=== PATIENT | female | born 1965 | race Hispanic/Latino ===

== ENCOUNTER 2016-09-27 10:46 | Outpatient (CLI) | payer OTHER ==
--- NOTE | 2016-09-27 12:17 | Mammography Report ---
BILATERAL MAMMOGRAM: FINDINGS: There are scattered fibroglandular densities (approximately 25%-50% glandular). No mass, distortion, suspicious calcification, or skin change is seen. There are no interval changes compared to her prior examination in 2015. CAD was utilized. IMPRESSION: Negative mammogram. There is no mammographic evidence of malignancy. RECOMMENDATION: Follow-up per ACS guidelines. BI-RADS CATEGORY: 1 = Negative ACR BI-RADS MAMMOGRAPHIC CODES: 0 = Needs additional imaging evaluation; 1 = Negative; 2 = Benign; 3 = Probably benign; 4 = Suspicious; 5 = Malignant; 6 = Known biopsy-proven malignancy COMMENT: 1. Dense breast tissue, i.e., adenosis, fibrocystic changes, etc., may obscure an underlying neoplasm. 2. Approximately 10% of cancers are not detected with mammography. 3. A negative mammography report should not delay biopsy if a clinically suspicious mass is present. COMMENT: Patient follow-up letters are generated in [employer]
== END 2016-09-27 10:47 | disposition home or self-care (01) ==
LOC: MAMMO 10:46
PROVIDERS: ATTEND Obstetrics & Gynecology
DX: Z12.31 Encounter for screening mammogram for malignant neoplasm of breast (principal)
CPT/HCPCS: 77067; G0202

== ENCOUNTER 2017-10-05 09:32 | Outpatient (CLI) | payer OTHER ==
--- NOTE | 2017-10-08 10:11 | Mammography Report ---
BILATERAL DIGITAL SCREENING MAMMOGRAM with CAD and BILATERAL DIGITAL BREAST TOMOSYNTHESIS (DBT) : 10/05/17 CLINICAL: Routine screening. COMPARISON:09/27/16 FINDINGS: There are bilateral scattered fibroglandular densities. A 4 mm left lower inner retroareolar oval circumscribed density is only identified on tomographic images and requires additional imaging. No architectural distortion or suspicious calcifications. The right breast is negative. IMPRESSION: Left asymmetry requiring additional workup. BI-RADS CATEGORY: 0 - - Needs Additional Imaging RECOMMENDATION: Recall for a left lower inner breast ultrasound. COMMENT: Patient follow-up letters are generated by our [employer] application.
== END 2017-10-05 09:33 | disposition home or self-care (01) ==
LOC: MAMMO 09:32
PROVIDERS: ATTEND Obstetrics & Gynecology
DX: Z12.31 Encounter for screening mammogram for malignant neoplasm of breast (principal)
CPT/HCPCS: 77063; 77067

== ENCOUNTER 2017-10-22 09:23 | Outpatient (CLI) | payer OTHER ==
--- NOTE | 2017-10-23 10:38 | Ultrasound Report ---
LEFT BREAST ULTRASOUND: 10/22/17 09:23:00 CLINICAL: Recall to evaluate an oval circumscribed focal asymmetry on screening tomosynthesis views COMPARISON: 10/05/17 screening mammogram. FINDINGS: Ultrasound of the left breast demonstrated an oval nodule or cyst at 6 o'clock at the edge of the areola. It measures 4 x 3 x 3 mm and correlates with the mammographic asymmetry. It is anechoic but demonstrates no posterior enhancement. IMPRESSION: A probably benign 4 mm cyst at 6 o'clock left breast. Recommend short-term followup with ultrasound in three months. She should be scheduled for that examination at [facility] for optimum evaluation by a radiologist. Ultrasound-guided needle aspiration is also a consideration and may alleviate the need for followup. BI-RADS 3 - - Probably Benign
== END 2017-10-22 09:24 | disposition home or self-care (01) ==
LOC: US 09:23
PROVIDERS: ATTEND Obstetrics & Gynecology
DX: N60.02 Solitary cyst of left breast (principal); N64.89 Other specified disorders of breast

== ENCOUNTER 2017-11-30 14:19 | Outpatient (CLI) | payer OTHER | END 2017-11-30 14:20 | disposition home or self-care (01) | LOC: LABHHL 14:19 | PROVIDERS: ATTEND Surgery | DX: N60.02 Solitary cyst of left breast (principal) | CPT/HCPCS: 88112 ==

== ENCOUNTER 2018-01-22 09:56 | Outpatient (CLI) | payer OTHER ==
--- NOTE | 2018-01-22 10:54 | Mammography Report ---
LEFT DIGITAL DIAGNOSTIC MAMMOGRAM with CAD and DIGITAL BREAST TOMOSYNTHESIS (DBT) : 01/22/18 09:56:00 CLINICAL: Followup 4 mm circumscribed retroareolar density. COMPARISON:10/05/17 digital breast tomosynthesis (DBT) FINDINGS: The previously described circumscribed round density at 6 o'clock 2-3 cm from the nipple is smaller and has flattened.Is now more oval and measures 3 x 3 x 2 mm. The breast is almost entirely fatty. No mass, architectural distortion or suspicious calcifications. IMPRESSION: A slightly smaller 3 mm benign cyst of the left breast. BI-RADS CATEGORY: 2 - - Benign RECOMMENDATION: Routine mammographic screening. COMMENT: Patient follow-up letters are generated by our [employer] application.
== END 2018-01-22 09:57 | disposition home or self-care (01) ==
LOC: SPVWC 09:56
PROVIDERS: ATTEND Surgery
DX: N60.02 Solitary cyst of left breast (principal); Z88.0 Allergy status to penicillin; Z88.8 Allergy status to other drugs, medicaments and biological substances; Z88.2 Allergy status to sulfonamides
CPT/HCPCS: 77065; G0279

== ENCOUNTER 2018-02-07 09:44 | Outpatient (CLI) | payer OTHER ==
--- NOTE | 2018-02-08 12:58 | Magnetic Resonance Report ---
BILATERAL BREAST MRI WITHOUT AND WITH CONTRAST: 02/07/18 09:44:00 CLINICAL: Family history breast cancer. COMPARISON:01/22/18. TECHNIQUE: Axial 1.0-mm T1 without, axial high resolution 2.0-mm T2 and axial 1.0-mm dynamic Vibrant high-resolution postcontrast T1 fat saturation sequences on a 1.5 Maegan magnet. The examination was performed with an 8 channel dedicated [place] breast coil. Post processing with CAD and subtraction was performed on an [employer] workstation. 15.0 cc of Multihance was injected without incident for the contrast portion of the exam. Consent was obtained prior to the administration of the contrast. FINDINGS: Right: Minimal background parenchymal enhancement. No mass or suspicious enhancement. No suspicious lymph nodes. Left: Minimal background parenchymal enhancement. No mass or suspicious enhancement. No suspicious lymph nodes. IMPRESSION: Normal study. RIGHT BI-RADS -- LEFT BI-RADS --
== END 2018-02-07 09:45 | disposition home or self-care (01) ==
LOC: SPVIMAG 09:44
PROVIDERS: ATTEND Surgery
DX: R92.2 Inconclusive mammogram (principal); Z80.3 Family history of malignant neoplasm of breast; Z88.0 Allergy status to penicillin; Z88.2 Allergy status to sulfonamides
CPT/HCPCS: A9577; C8908; 77059

== ENCOUNTER 2018-10-15 08:36 | Outpatient (CLI) | payer OTHER ==
--- NOTE | 2018-10-15 09:20 | Mammography Report ---
BILATERAL DIGITAL SCREENING MAMMOGRAM with CAD and DIGITAL BREAST TOMOSYNTHESIS (DBT) : 10/15/18 09:00:00 CLINICAL: Routine screening. COMPARISON:01/22/18 and 10/15/17 FINDINGS: There are bilateral scattered fibroglandular densities.Near complete resolution of the previously described 3 mm left retroareolar cyst. No mass, architectural distortion or suspicious calcifications. IMPRESSION: No mammographic evidence of malignancy. BI-RADS CATEGORY: 1 - - Negative RECOMMENDATION: Routine mammographic screening in one year. COMMENT: Patient follow-up letters are generated by our [employer] application.
== END 2018-10-15 08:37 | disposition home or self-care (01) ==
LOC: SPVWC 08:36
PROVIDERS: ATTEND Surgery
DX: Z12.31 Encounter for screening mammogram for malignant neoplasm of breast (principal)
CPT/HCPCS: 77063; 77067